=== PATIENT | female | born 1985 | race Caucasian/White ===

== ENCOUNTER 2025-05-18 19:15 | Outpatient (REF) | payer BC, SELFPAY ==
--- OUTSIDE RECORDS SUMMARY | 2025-05-18 11:00 | XMS_ITS | Encounter Summary ---
Author Organization [facility] Address [address] [place] [address] Care Team Providers Care Dowel Inserting Machine Operator Name Role Phone Unavailable Primary Care Provider Unavailabl e Reason for Visit * ReasonCommentsGynecologic Exam Encounter Details DateTypeDepartmentCare Team (Latest Contact Info)Wfapptnvtsz36/18/2025 11:00 AM ESTProcedure Visit [facility] [address] [place] [address] Floresita Simons NP [address] [facility] [place] [address] Well woman exam with routine gynecological exam; Encounter for screening mammogram for malignant neoplasm of breast Social History Tobacco UseTypesPacks/DayYears UsedDateSmoking Tobacco: NeverSmokeless Tobacco: Never Tobacco Cessation:Counseling Given: Not Answered CommentsUnknownSex and Gender InformationValueDate RecordedSex Assigned at BirthNot on fileLegal UhhKugjpm95/15/2023 7:14 PM EDTGender IdentityNot on fileSexual OrientationNot on filedocumented as of this encounter Last Filed Vital Signs Vital SignReadingTime TakenCommentsBlood Dofmniag456/7205/18/2025 11:21 AM EST Pulse--Temperature--Respiratory Rate--Oxygen Saturation--Inhaled Oxygen Concentration--Hcqeuj76.2 kg (124 lb)05/18/2025 11:21 AM ESTHeight--Body Mass Index--documented in this encounter Progress Notes * Floresita Simons NP - 05/18/2025 11:00 AM EST Reason for Appointment: Patient ID: Hafsa Dominguez is a 40 y.o. female who presents for Gynecologic Exam Patient presents today for Annual Exam. MEDICATIONS No current outpatient medications ALLERGIES No Known Allergies PROBLEMS Active Ambulatory Problems Diagnosis Date Noted No Active Ambulatory Problems Resolved Ambulatory Problems Diagnosis Date Noted No Resolved Ambulatory Problems No Additional Past Medical History HISTORY PAST MEDICAL HISTORY SOCIAL HISTORY No past medical history on file. Social History Tobacco Use Smoking status: Not on file Smokeless tobacco: Not on file Substance Use Topics Alcohol use: Not on file Drug use: Not on file FAMILY HISTORY No family history on file. SURGICAL HISTORY History reviewed. No pertinent surgical history. REVIEW OF SYSTEMS Review of Systems: Review of Systems Constitutional: Negative. HENT: Negative. Eyes: Negative. Respiratory: Negative. Cardiovascular: Negative. Gastrointestinal: Negative. Genitourinary: Negative. Musculoskeletal: Negative. Skin: Negative. Neurological: Negative. All other systems reviewed and are negative. Hematological: Negative. Endocrine: Negative. Allergic/Immunologic: Negative. OBJECTIVE Objective: Physical Exam Constitutional: Appearance: Normal appearance. She is well-developed. Genitourinary: Vulva normal. Breasts: Breasts are soft. Right: Normal. Left: Normal. Cardiovascular: Rate and Rhythm: Normal rate and regular rhythm. Pulmonary: Effort: Pulmonary effort is normal. Breath sounds: Normal breath sounds. Abdominal: General: Bowel sounds are normal. There is no distension. Palpations: Abdomen is soft. Tenderness: There is no abdominal tenderness. There is no guarding or rebound. Musculoskeletal: General: No swelling. Normal range of motion. Right lower leg: No edema. Left lower leg: No edema. Neurological: Mental Status: She is alert and oriented to person, place, and time. Skin: General: Skin is warm and dry. Psychiatric: Mood and Affect: Mood normal. Behavior: Behavior normal. Vitals and nursing note reviewed. Exam conducted with a papier mache molder present. Vitals: There is no height or weight on file to calculate BMI. BP: No LMP recorded. ASSESSMENT & PLAN ICD-10-CM 1. Well woman exam with routine gynecological exam Z01.419 THIN PREP TIS PAP AND HR HPV DNA CANCELED: THIN PREP TIS PAP AND HR HPV DNA 2. Encounter for screening mammogram for malignant neoplasm of breast Z12.31 Bilateral screening mammogram Bilateral screening mammogram Assessment/Plan Annual Exam: Patient presents today for an annual exam. Patient states she is doing well and has no complaints. Pap was obtained without difficulty. Orders Placed This Encounter Procedures Bilateral screening mammogram Follow Up: Patient is to return in one year for annual unless needed otherwise. Documented by Stephanie Jay CST on behalf of: Floresita Simons NP documented in this encounter Plan of Treatment DateTypeDepartmentCare Team (Latest Contact Info)Arevgnrdqfm07/21/2026 1:20 PM ESTOffice Visit [facility] [address] [place] [address] Charmaine Mendez PA [address] [place] [phone] NameTypePriorityAssociated DiagnosesOrder ScheduleBilateral screening mammogram ImagingRoutine Encounter for screening mammogram for malignant neoplasm of breast Expected: 05/18/2025 (Approximate), Expires: 07/19/2026THIN PREP TIS PAP AND HR HPV DNAPathology and CytologyRoutine Well woman exam with routine gynecological exam Ordered: 05/18/2025documented as of this encounter Visit Diagnoses Diagnosis Well woman exam with routine gynecological exam Routine gynecological examination Encounter for screening mammogram for malignant neoplasm of breast documented in this encounter
--- OUTSIDE RECORDS SUMMARY | 2025-05-18 14:00 | XMS_ITS | Encounter Summary ---
Author Organization [facility] Address [id number] [place] [address] Care Team Providers Care Rejogger Name Role Phone Jeff Simpson DO Primary Care Provider + [phone] Reason for Visit * ReasonCommentsmedication supplements and lab results. bowel issues Encounter Details DateTypeDepartmentCare Team (Latest Contact Info)Ofscxdyxfdx88/18/2025 2:[address] [facility] [address] [place] [address] Jeff Simpson DO [address], [place] [address] Low ferritin (Primary Dx); Hair loss Social History Tobacco UseTypesPacks/DayYears UsedDateSmoking Tobacco: NeverSmokeless Tobacco: NeverAlcohol UseStandard Drinks/WeekCommentsYes0 (1 standard drink = 0.6 oz pure alcohol)OccasionalAHC UtilitiesAnswerDate RecordedIn the past 12 months has the electric, gas, oil, or water company threatened to shut off services in your home?No07/01/2024Social Connection and Isolation PanelAnswerDate RecordedIn a typical week, how many times do you talk on the phone with family, friends, or neighbors?Twice a week07/01/2024How often do you get together with friends or relatives?Once a week07/01/2024How often do you attend oriental orthodox or restoration services?More than 4 times per year07/01/2024Do you belong to any clubs or organizations such as oriental orthodox groups, unions, fraternal or athletic groups, or school groups?No07/01/2024How often do you attend meetings of the clubs or organizations you belong to?Never07/01/2024re you , , , , never , or living with a partner?Tutbvgy4907/01/2024UDIT-C AnswerDate RecordedQ1: How often do you have a drink containing alcohol?2-4 times a month10/14/2022Q2: How many drinks containing alcohol do you have on a typical day when you are drinking?1 or Q3: How often do you have six or more drinks on one occasion?Never10/14/2022Overall Financial Resource Strain (CARDIA)AnswerDate RecordedHow hard is it for you to pay for the very basics like food, housing, medical care, and heating?Not hard at all11/28/2024PHQ-2 AnswerDate RecordedTotal Ngrmn86507/19/2024[facility] [place] of Occupational Health - Occupational Stress QuestionnaireAnswerDate RecordedDo you feel stress - tense, restless, nervous, or anxious, or unable to sleep at night because your mind is troubled all the time - these days?Not at all10/14/2022Exercise Vital SignAnswerDate RecordedOn average, how many days per week do you engage in moderate to strenuous exercise (like a brisk walk)?4 days10/14/2022On average, how many minutes do you engage in exercise at this level?90 min10/14/2022RAPARE - TransportationAnswerDate RecordedIn the past 12 months, has lack of transportation kept you from medical appointments or from getting medications?No 11/28/2024In the past 12 months, has lack of transportation kept you from meetings, work, or from getting things needed for daily living?No11/28/2024 Housing InstabilityAnswerDate RecordedAre you worried or concerned that in the next two months you may not have stable housing that you own, rent or stay in as a part of a household?No11/28/2024hildcareAnswerDate 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 Strongly Agree07/01/2024CommentsUnknownSex and Gender InformationValue Date RecordedSex Assigned at BirthNot on fileLegal VfpUnhkgj71/08/2022 4:46 PM EDTGender IdentityNot on fileSexual OrientationNot on filedocumented as of this encounter Last Filed Vital Signs Vital SignReadingTime TakenCommentsBlood Xpsjobzy129/7805/18/2025 2:20 PM EST Wgfoj325405/18/2025 2:20 PM JBTGgbfrheiqze11.8 ??C (98.2 ??F)05/18/2025 2:20 PM ESTRespiratory Lpss657207/19/2024 2:20 PM ESTOxygen Tsqnjmfmih37%05/18/2025 2:20 PM ESTInhaled Oxygen Concentration--Wlsaxs52.1 kg (125 lb 12.8 oz)05/18/2025 2:20 PM YFYGfoypy495 cm (5' 2.99 )05/18/2025 2:20 PM ESTBody Mass Index22.29 05/18/2025 2:20 PM ESTdocumented in this encounter Functional Status * BPAnswerDate of ZxptepipnsHzimvg826/7805/18/2025 2:20 PM Herb Melvin CMA * TempAnswerDate of XnzcxrugqhRjyzjw13. 2:20 PM Herb Melvin CMA * Temp srcAnswerDate of LxxoindnxzLuuefnVwrv14/18/2025 2:20 PM Herb Melvin CMA * PulseAnswerDate of ErkenghiyvCrvdef3117 2:20 PM Herb Melvin CMA * RespAnswerDate of GlggvwedfjDsehsp0816/18/2025 2:20 PM Herb Melvin CMA * UyY8MzhrtoLuvo of GbpgnjzqhsGvukvb3543 2:20 PM Herb Melvin CMA * HeightAnswerDate of FrxcrxknzsMiabfs85.9905/18/2025 2:20 PM Herb Melvin CMA * WeightAnswerDate of UljxyvupluUndrdy3479.8107/19/2024 2:20 PM Herb Melvin CMA * Food InsecurityQuestionAnswerDate of AssessmentAuthorWithin the past 12 months the food we bought just didn't last and we didn't have money to get more.Never True05/18/2025 2:20 PM Herb Melvin CMAWithin the past 12 months we worried whether our food would run out before we got money to buy more.Never True05/18/2025 2:20 PM Herb Melvin CMA * BEE (kcal)AnswerDate of HinvpisocdDxjicv472971/18/2025 2:20 PM Herb Melvin CMA * BSA (Calculated - sq m)AnswerDate of AssessmentAuthor1.5905/18/2025 2:20 PM Herb Melvin CMA * BMI (Calculated)AnswerDate of UcupckwykxCigzri12.312 2:20 PM Herb Espinoza CMA * Weight in (lb) to have BMI = 25AnswerDate of OnqeftcmzuBhrbpy962.8107/19/2024 2:20 PM Herb Melvin CMA * Vitals TimerQuestionAnswerDate of AssessmentSelect Specialty Hospital[facility] Vitals TimerYes 05/18/2025 2:20 PM Herb Melvin CMA * Over the last 2 weeks, how often have you been bothered by any of the following problems?QuestionAnswerDate of AssessmentAuthorttle interest or pleasure in doing uwsfkm272/18/2025 2:20 PM Herb Melvin CMAFeeling down, depressed, or pvxvbixm387/18/2025 2:20 PM Herb Melvin, TRACYTotal Uiofz71907/19/2024 2:20 PM Herb Melvin CMA * BPAnswerDate of JdfoqunwnmPyybxn402/7805/18/2025 2:20 PM Herb Melvin, BAR HOST/HOSTESS * TempAnswerDate of LhdmwfdydxUlvdfu78.212 2:20 PM Herb Melvin CMA * Temp srcAnswerDate of KhaaukndgeHxuxjpSova83 2:20 PM Herb Melvin, BAR HOST/HOSTESS * PulseAnswerDate of QybdanouppBnoxuh9843/18/2025 2:20 PM Herb Melvin BAR HOST/HOSTESS * RespAnswerDate of AyynvzhaqaZiqjay5807/18/2025 2:20 PM Herb Melvin CMA * LpH4AvezahQyts of MfahopjzccJmuutz9910 2:20 PM Herb Melvin CMA * HeightAnswerDate of LegbspskprJerdrl77.9905/18/2025 2:20 PM Herb Melvin, BAR HOST/HOSTESS * WeightAnswerDate of OkpuloscgvDaomkq9257.8107/19/2024 2:20 PM Herb Melvin CMA * BEE (kcal)AnswerDate of MxiixikpfqOegdfx313441 2:20 PM Herb Melvin CMA * BSA (Calculated - sq m)AnswerDate of AssessmentAuthor1.5912 2:20 PM Herb Melvin, BAR HOST/HOSTESS * BMI (Calculated)AnswerDate of QlfwvqoazjLzslfg55.312 2:20 PM Herb Espinoza CMA * Weight in (lb) to have BMI = 25AnswerDate of GehnsonwdzIqmlgm093.8107/19/2024 2:20 PM Herb Melvin BAR HOST/HOSTESS documented as of this encounter Mental Status * BPAnswerEntry ZzfaVrznwj223/7805/18/2025 2:20 PM Herb Melvin CMA * TempAnswerEntry VugiKcitqe86.212 2:20 PM Herb Melvin CMA * Temp srcAnswerEntry OzpsUesdbjUady41 2:20 PM Herb Melvin CMA * PulseAnswerEntry BzgdQnzlys6648 2:20 PM Herb Melvin CMA * RespAnswerEntry KgbfYjlrbw6939 2:20 PM Herb Melvin CMA * BqA8QapzrvFuixz TtagBquveb2585 2:20 PM OlegarioHebr TRACY documented in this encounter Plan of Treatment NameTypePriorityAssociated DiagnosesDate/TimeANA Screen w/ ReflexLabRoutine Low ferritin Hair loss 05/18/2025 3:02 PM ESTCCP AbLabRoutine Low ferritin Hair loss 05/18/2025 3:02 PM ESTFerritinLabRoutine Low ferritin Hair loss 05/18/2025 3:02 PM ESTIron and TIBCLabRoutine Low ferritin Hair loss 05/18/2025 3:02 PM ESTRheumatoid factorLabRoutine Low ferritin Hair loss 05/18/2025 3:02 PM ESTCBC without diffLabRoutine Low ferritin Hair loss 05/18/2025 3:05 PM ESTNameTypePriorityAssociated DiagnosesOrder ScheduleANA Screen w/ ReflexLabRoutine Low ferritin Hair loss 1 Occurrences starting 05/18/2025 until 6CCP AbLabRoutine Low ferritin Hair loss 1 Occurrences starting 05/18/2025 until 05/18/2026FerritinLabRoutine Low ferritin Hair loss 1 Occurrences starting 05/18/2025 until 05/18/2026Iron and TIBCLabRoutine Low ferritin Hair loss 1 Occurrences starting 05/18/2025 until 05/18/2026Rheumatoid factorLabRoutine Low ferritin Hair loss 1 Occurrences starting 05/18/2025 until 6CBC without diffLabRoutine Low ferritin Hair loss 1 Occurrences starting 05/18/2025 until 05/18/2026documented as of this encounter Visit Diagnoses Diagnosis Low ferritin- Primary Other nonspecific findings on examination of blood Hair loss Unspecified alopecia documented in this encounter Additional Health Concerns AssessmentNoted TimePHQ-9 Depression Total Score: 2:20 PM EST documented as of this encounter Care Teams Team MemberRelationshipSpecialtyStart DateEnd Date Jeff Simpson DO [address] [facility] [place] [address] PCP - GeneralFamily Medicine08/08/22documented as of this encounter
--- OUTSIDE RECORDS SUMMARY | 2025-05-18 19:21 | XMS_ITS | Encounter Summary ---
Author Organization [facility] Address [address] [place] [address] Care Team Providers Care Textile Screen Printer Name Role Phone Unavailable Primary Care Provider Unavailabl e Encounter Details DateTypeDepartmentCare Team (Latest Contact Info)Bgquiysnhzg80/18/2025amboo flowsheet [facility] [address] [facility] [place] [address] Floresita Simons, SHASHI [address] [facility] [place] [address] Social History Tobacco UseTypesPacks/DayYears UsedDateSmoking Tobacco: NeverSmokeless Tobacco: NeverCommentsUnknownSex and Gender InformationValueDate RecordedSex Assigned at BirthNot on fileLegal VjfDfbzjv77/15/2023 7:14 PM EDTGender Identity Not on fileSexual OrientationNot on filedocumented as of this encounter Plan of Treatment DateTypeDepartmentCare Team (Latest Contact Info)Catrwflozxa73/21/2026 1:20 PM ESTOffice Visit [facility] [address] [place] [address] Charmaine Mendez PA [address] [place] [address] documented as of this encounter Visit Diagnoses Not on filedocumented in this encounter
--- OUTSIDE RECORDS SUMMARY | 2025-05-18 19:21 | XMS_ITS | Encounter Summary ---
Author Organization [facility] Address [facility] [id number] [place] [address] Care Team Providers Care Scale Operator Name Role Phone Jeff Simpson DO Primary Care Provider + [phone] Encounter Details DateTypeDepartmentCare Team (Latest Contact Info)Hvzymtgshqy84/18/2025Travel Social History Tobacco UseTypesPacks/DayYears UsedDateSmoking Tobacco: NeverSmokeless Tobacco: NeverAlcohol UseStandard Drinks/WeekCommentsYes0 (1 standard drink = 0.6 oz pure alcohol)OccasionalAHC UtilitiesAnswerDate RecordedIn the past 12 months has the [employer], gas, oil, or water [employer] threatened to shut off services in your home?No07/01/2024Social Connection and Isolation PanelAnswerDate RecordedIn a typical week, how many times do you talk on the phone with family, friends, or neighbors?Twice a week07/01/2024How often do you get together with friends or relatives?Once a week07/01/2024How often do you attend anabaptist or rastafari services?More than 4 times per year07/01/2024Do you belong to any clubs or organizations such as anabaptist groups, unions, fraternal or athletic groups, or school groups?No07/01/2024How often do you attend meetings of the clubs or organizations you belong to?Never07/01/2024re you , , , , never , or living with a partner?Isizakd0007/01/2024UDIT-C AnswerDate RecordedQ1: How often do you have [...] and heating?Not hard at all11/28/2024PHQ-2 AnswerDate RecordedTotal Jtgzs93907/19/2024[facility] [place] of Occupational Health - Occupational Stress QuestionnaireAnswerDate [...] of a household?No11/28/2024hildcareAnswerDate RecordedDo 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 [...] Date RecordedSex Assigned at BirthNot on fileLegal AeyFyzwsu50/08/2022 4:46 PM EDTGender IdentityNot on fileSexual OrientationNot on filedocumented as of this encounter Plan of Treatment Not on file documented as of this encounter Visit Diagnoses Not on filedocumented in this encounter Additional Health Concerns AssessmentNoted TimePHQ-9 Depression Total Score: 2:20 PM EST documented as of this encounter Care Teams Team MemberRelationshipSpecialtyStart DateEnd Date Jeff Simpson DO [address] [facility], [place] [address] PCP - GeneralFamily Medicine08/08/22documented as of this encounter
--- OUTSIDE RECORDS SUMMARY | 2025-05-18 19:21 | XMS_ITS | Clinical Summary ---
Author Organization [facility] Address [id number] [place] [address] Care Team Providers Care Dielectric Embossing Machine Operator Name Role Phone Jeff Simpson DO Primary Care Provider [phone] Allergies No known active allergies Medications MedicationSigDispense QuantityRefillsLast FilledStart DateEnd DateStatus mpylqotr-tphm-WX-calcium &mins (THERAGRAN-M) 9 mg iron-400 mcg tablet Take 1 tablet by mouth in the morning.Active albuterol-budesonide (AIRSUPRA) 90-80 mcg/actuation HFA aerosol inhaler Indications:Mild intermittent reactive airway disease without complicationInhale 2 Inhalations 4 (four) times a day as needed (short of breath). 5.9 g 5Active Additional Information Patient not taking.Reported on 05/18/2025 Active Problems ProblemNoted DateDiagnosed DateInfection due to HTLV-I02/15/2017 Encounters DateTypeDepartmentCare GvceMlqwsegeyet19/18/2025 2:00 PM ESTOffice Visit [facility] [address] [place] [address] Jeff Simpson DO Low ferritin (Primary Dx); Hair loss05/18/2025Travelfrom Last 3 Months Immunizations ImmunizationAdministration DatesNext DueInfluenza, Injectable, Quadrivalent 03/05/2020 Family History Medical HistoryRelationNameCommentsNo Known ProblemsBrother 1No Known Problems Fathervalve issue?MelanomaMaternal GrandfatherCOPDMaternal GrandmotherHeart diseaseMaternal GrandmotherNo Known ProblemsMotherDiabetesPaternal AuntLung cancerPaternal GrandfatherMets to LiverCOPDPaternal GrandmotherHeart disease Paternal Grandmotherbrain aneurysmPaternal GrandmotherNo Known ProblemsSister RelationNameStatusCommentsBrother 1AliveBrother 2AliveFatherAliveMaternal GrandfatherDeceasedMaternal GrandmotherDeceasedMotherAlivePaternal AuntPaternal GrandfatherDeceasedPaternal GrandmotherDeceasedSisterAlive Social History Tobacco UseTypesPacks/DayYears UsedDateSmoking Tobacco: NeverSmokeless Tobacco: NeverAlcohol UseStandard Drinks/WeekCommentsYes0 (1 standard drink = 0.6 oz pure alcohol)OccasionalAHC UtilitiesAnswerDate RecordedIn the past 12 months has the [employer], gas, oil, or water [employer] threatened to shut off services in your home?No07/01/2024Social Connection and Isolation PanelAnswerDate RecordedIn a typical week, how many times do you talk on the phone with family, friends, or neighbors?Twice a week07/01/2024How often do you get together with friends or relatives?Once a week07/01/2024How often do you attend advent or roman catholic services?More than 4 times per year07/01/2024Do you belong to any clubs or organizations such as advent groups, unions, fraternal or athletic groups, or school groups?No07/01/2024How often do you attend meetings of the clubs or organizations you belong to?Never07/01/2024re you , , , , never , or living with a partner?Zvdpxwx1307/01/2024UDIT-C AnswerDate RecordedQ1: How often do you have [...] and heating?Not hard at all11/28/2024PHQ-2 AnswerDate RecordedTotal Wnsvr45007/19/2024[facility] [place] of Occupational Health - Occupational Stress QuestionnaireAnswerDate [...] part of a household?No11/28/2024hildcareAnswerDate RecordedDo problems getting 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 [...] Date RecordedSex Assigned at BirthNot on fileLegal ZsgZjfwul18/08/2022 4:46 PM EDTGender IdentityNot on fileSexual OrientationNot on file Last Filed Vital Signs Vital SignReadingTime TakenCommentsBlood Ghzewkkb508/7805/18/2025 2:20 PM EST Ejjhi666805/18/2025 2:20 PM AOSZmbomnufiqp46.8 ??C (98.2 ??F)05/18/2025 2:20 PM ESTRespiratory Cgiq240707/19/2024 2:20 PM ESTOxygen Madnfdoeqm72%05/18/2025 2:20 PM ESTInhaled Oxygen Concentration--Hatexj68.1 kg (125 lb 12.8 oz)05/18/2025 2:20 PM VVNAxpjkd072 cm (5' 2.99 )05/18/2025 2:20 PM ESTBody Mass Index22.29 05/18/2025 2:20 PM EST Plan of Treatment Health MaintenanceDue DateLast DoneCommentsCOVID-19 Vaccine ( season) /07/2020, 06/05/2020Influenza Cdvvuiw04/09/2019Pap Smear /07/2021, 03/03/2022TaP,Tdap and Td Vaccines (2 - Td or Tdap) /01/2011Postponed from 02/07/2021 (Patient Refused)Adult BMI Zldnbldwe91Depression Jewwxbkgz20/Tobacco Znnuthnnj75 Medical Devices Not on file Procedures Procedure NamePriorityDate/TimeAssociated DiagnosisCommentsHIGH RISK HPV W/LOREN Vthcbds0103/03/2022 7:07 AM EDT from Last 3 Months or Most Recently Relevant to Health Maintenance Results * High risk HPV w/loren (03/03/2022 7:07 AM EDT)ComponentValueRef RangeTest MethodAnalysis TimePerformed AtPathologist SignatureHpv specimen typeThinPrep 03/04/2022 7:07 AM EDTSUNQUESTHpv 16NegativeNegative^Bpoppyxl61/05/2022 2:04 PM EDTTOLEBOONE COUNTY COMM[facility]ITY [facility] LABHpv 18NegativeNegative^Nyfcvjgu32/05/2022 2:04 PM [facility] LABOther high risk hpvNegative Negative^Qwbnpatd07/05/2022 2:04 PM [facility] LABComment: HPV types 31,33,35,39,45,52,56,58,59,66 and 68 DNA were undetectable. Specimen (Source)Anatomical Location / LateralityCollection Method / Volume Collection TimeReceived YvwwUKBHO33/03/2022 7:07 AM EDT1 7:07 AM EDT Narrative Authorizing ProviderResult TypeResult StatusJayshreececelia Gabriel Froylandave MARKETING DIRECTOR-FNPLAB BLOOD ORDERABLESFinal ResultPerforming OrganizationAddressCity/State/ZIP CodePhone Number [facility] [address] [facility], [address] [place] [address] from Last 3 Months or Most Recently Relevant to Health Maintenance [place] [address] Care Teams Team MemberRelationshipSpecialtyStart DateEnd Date Jeff Simpson DO [address] [facility] [address] PCP - GeneralFamily Medicine08/08/22
--- OUTSIDE RECORDS SUMMARY | 2025-05-18 19:21 | XMS_ITS | Clinical Summary ---
Author Organization [facility] Address [address] [facility] [place] [place] [address] Care Team Providers Care Senior Ruby Developer Name Role Phone Unavailable Primary Care Provider Unavailabl e Allergies No known active allergies Medications No known medications Encounters DateTypeDepartmentCare KtdiVoemefvqbee91/18/2025 11:00 AM ESTProcedure Visit [facility] [address] [facility] [place] [address] Floresita Simons NP Well woman exam with routine gynecological exam; Encounter for screening mammogram for malignant neoplasm of xovyqn6305/18/2025 Bamboo flowsheet [facility] [address] [address] [place] [address] Floresita Simons NP from Last 3 Months Social History Tobacco UseTypesPacks/DayYears UsedDateSmoking Tobacco: NeverSmokeless Tobacco: Never Tobacco Cessation:Counseling Given: Not Answered CommentsUnknownSex and Gender InformationValueDate RecordedSex Assigned at BirthNot on fileLegal RksLiiceu57/15/2023 7:14 PM EDTGender IdentityNot on fileSexual OrientationNot on file Last Filed Vital Signs Vital SignReadingTime TakenCommentsBlood Opufhjza235/7205/18/2025 11:21 AM EST Pulse--Temperature--Respiratory Rate--Oxygen Saturation--Inhaled Oxygen Concentration--Zjlwyd07.2 kg (124 lb)05/18/2025 11:21 AM ESTHeight--Body Mass Index-- Plan of Treatment DateTypeDepartmentCare Team (Latest Contact Info)Czbmjgsefdg08/21/2026 1:20 PM ESTOffice Visit [facility] [address] [place] [address] Charmaine Mendez PA [address] [place] [address] Health MaintenanceDue DateLast DoneCommentsHPV/Uabttg5101/27/2015Mammogram 5COVID-19 Vaccine (2024- season)/07/2020, 06/05/2020 Influenza Vaccine (#1)/09/2019Cervical Cancer Sswoveljc67/03/2025Pap Smear/2Pneumococcal Vaccine: Pediatrics (0 to 5 Years) and At- Risk Patients (6 to 64 Years)Aged OutNo longer eligible based on patient's age to complete this topic Insurance
--- OUTSIDE RECORDS SUMMARY | 2025-05-18 19:21 | XMS_ITS | Clinical Summary ---
Author Organization [facility] Address [address] [place] [address] Care Team Providers Care Top Coater Name Role Phone Jeff Simpson DO Primary Care Provider Allergies No known active allergies Medications MedicationSigDispense QuantityRefillsLast FilledStart DateEnd DateStatus ibuprofen (MOTRIN) 200 mg tablet Take 200 mg by mouth every 6 hours as needed.Active Active Problems No known active problems Family History Medical HistoryRelationCommentsCancerMaternal GrandfatherMelanomaHeartMaternal GrandmotherCancerPaternal GrandfatherLung with liver metsCOPDPaternal GrandmotherCoronary Artery DiseasePaternal GrandmotherRelationStatusComments FatherAliveMaternal GrandfatherDeceasedMaternal GrandmotherDeceasedMotherAlive Paternal GrandfatherDeceasedPaternal GrandmotherAlive Social History Tobacco UseTypesPacks/DayYears UsedDateSmoking Tobacco: NeverSmokeless Tobacco: NeverAlcohol UseStandard Drinks/WeekCommentsNo0 (1 standard drink = 0.6 oz pure alcohol)CommentsNoSex and Gender InformationValueDate RecordedSex Assigned at BirthNot on fileLegal VzyItjcdb81/05/2017 11:51 AM EDTGender IdentityNot on fileSexual OrientationNot on file Last Filed Vital Signs Vital SignReadingTime TakenCommentsBlood Qnhcchtr385/801 3:38 PM EDT Ktrhd824103/11/2017 3:38 PM CJRSvcsyulopwe79.3 ??C (97.4 ??F)03/11/2017 3:38 PM EDTRespiratory Qaoi9664 3:38 PM EDTOxygen Saturation--Inhaled Oxygen Concentration--Ysuvlj56.7 kg (122 lb 12.8 oz)03/11/2017 3:38 PM KDBNzhszm594 cm (5' 3 )03/11/2017 3:38 PM EDTverified by 2 caregiversBody Mass Index21.75 03/11/2017 3:38 PM EDT Plan of Treatment Health MaintenanceDue DateLast DoneCommentsAnxiety Gsrqjhcyi30/29/2003Depression Famrrpskh36/29/2003HIV Pbiyuumow32/29/2003Hepatitis C Jasuekuos16/29/2003 DTaP,Tdap,Td Vaccine (1 - Tdap)01/28/2004Hepatitis B Vaccine (1 of 3 - 19+ 3- dose series)01/28/2004Cervical Cancer Vwiczwjrq92/29/2006HPV Vaccine (1 - 3-dose SCDM series)01/28/2012Mammogram Xybeelfym66/29/2025Covid-19 Vaccine ( - 2024- season)2025Influenza Vaccine (#1)2025 Insurance MemberSubscriberPlan / Payer (Effective 2013-Present)Name:Hafsa Mccarthy Relation to Subscriber:SpouseName:LILIANA MCCARTHY Date of :1982 (Home) Address: [address] [place] [address] Payer ID:[id number] (NAIC) Type:PPO Address: [facility] [id number] [place] [id number] Care Teams Team MemberRelationshipSpecialtyStart DateEnd Date Jeff Simpson DO [address] [facility] [place] [id number] (work) [facility] Wxzvgyfs77/5/17
== END 2025-05-18 19:16 | disposition home or self-care (01) ==
LOC: LAB 19:15
PROVIDERS: Visit Provider Nurse Practitioner Family
DX: Z01.419 Encounter for gynecological examination (general) (routine) without abnormal findings (principal)
CPT/HCPCS: 88175